=== PATIENT | female | born 2000 | race Caucasian/White ===

== ENCOUNTER 2022-01-05 10:37 | Observation (INO) | payer MEDICAID, SELFPAY ==
[2022-01-05] VITALS (18 sets, daily range): BP systolic 103–129; BP diastolic 60–80; PULSE 95–143; RESP 13–25; TEMP 37.4–38.9; O2SAT 96–100
--- NOTE | ~2022-01-05 | CT_ITS ---
EXAMINATION: CT abdomen pelvis w con DATE: 01/05/2022 13:09 INDICATION: Abdomen pain. TECHNIQUE: Computed tomography (CT) of the abdomen and pelvis was performed with 100 cc Omnipaque 350 intravenous contrast. The dose-length product was 222.43 mGy-cm. Automated exposure control and iter ative reconstruction technique were employed. COMPARISON: None. FINDINGS: The appendix is thickened and enhancing and is retrocecal measuring up to 8 mm greatest tra nsverse dimension. No evidence for perforation. Lung bases are unremarkable. No significant pleural or pericardial effusion. Heart size normal. The l iver, spleen, pancreas, adrenal glands are unremarkable. There are mildly distended enhancing small b owel loops. No definite obstruction. Findings suspicious for enteritis. There is gas and fluid throug hout the colon. No free air or significant free fluid. IMPRESSION: 1. Multiple mildly distended small bowel loops containing fluid with wall enhancement, suspicious for enteritis. 2: Mildly thickened enhancing appendix measuring 8 mm. Consider acute appendicitis in the appropriate clinical setting. No evidence for perforation. Reviewed, dictated and finalized at location A. IMPRESSION: 1. Multiple mildly distended small bowel loops containing fluid with wall enhan cement, suspicious for enteritis. 2: Mildly thickened enhancing appendix measuring 8 mm. Consider acute appendici tis in the appropriate clinical setting. No evidence for perforation.
--- NOTE | ~2022-01-05 | XR_ITS ---
EXAMINATION: XR chest 1V portable 01/05/2022 11:25 INDICATION: Cough for 3-4 weeks PROCEDURE: AP portable chest COMPARISON: No prior studies for comparison. FINDINGS: The lungs are clear. The cardiomediastinal silhouette is within normal limits. There are no pleural effusions. There is no pneumothorax suspected. IMPRESSION: 1: NO ACUTE CARDIOPULMONARY DISEASE. Reviewed, dictated and finalized at location A.
--- NOTE | ~2022-01-05 | XR_ITS ---
XR abdomen obstructive series DATE: 01/05/2022 21:21 INDICATION: Enteritis. Abdominal pain. TECHNIQUE: Portable supine and upright AP views of the abdomen COMPARISON: 01/05/2022 CT abdomen pelvis FINDINGS: There are multiple gas containing small bowel segments overlying the mid abdomen, suggestin g adynamic ileus or enteritis. No bowel obstruction or intraperitoneal free air is evident. The psoas shadows are intact. No visceromegaly is evident. No pleural effusion. No infiltrate or consolidation in the included mid and lower lung zones. Heart s ize is within normal range. IMPRESSION: Mild gaseous distention of the small bowel suggesting enteritis or adynamic ileus Reviewed, dictated and finalized at Location [facility]. Reviewed, dictated and finalized at location A.
--- NOTE | 2022-01-05 11:28 | ED.GENADULT ---
HPI - General Adult General Chief complaint: Nausea/Vomiting/Diarrhea Stated complaint: vomiting black Time Seen by Provider: 01/05/22 11:09 Source: RN notes reviewed History of Present Illness HPI narrative: Patient presents emergency department from home for nausea and vomiting. Patient states that she has had a cough this been nonproductive for the past 2 weeks. She states that starting last night she began to have nausea and vomiting at around 9 PM and has been vomiting since that time. States that nausea vomiting is associated with abdominal pain described as cramping in the upper abdomen. She states that she had one episode of black emesis on her last episode of emesis this morning but none of her other episodes of emesis or black she denies any fevers or chills, chest pain, shortness of breath diarrhea or any other symptoms Related Data Home Medications Medication Instructions Recorded Confirmed norgestimate-ethinyl estradiol tablet 01/05/22 [Sprintec (28)] Allergies Allergy/AdvReac Type Severity Reaction Status Date / Time No Known Allergies Allergy Verified 01/05/22 11:33 Review of Systems Review of Systems: Gen.: Denies fevers or chills ENT: Denies congestion Respiratory: Denies shortness of breath ports CV: Denies chest pain or palpitations GI: See HPI Musculoskeletal: Denies back pain or muscle pain Neuro: Denies numbness, tingling, weakness or focal weakness Skin: Denies rash Except as documented, all other systems reviewed and negative [facility] Past Medical History Medical History (Updated 01/05/22 @ 14:01 by John Gottlieb DO) Patient denies significant medical history Social History Social History (Updated 01/05/22 @ 11:29 by John Gottlieb DO) Smoking status: Never smoker Exam Narrative: APPEARANCE: No acute distress, nontoxic, resting in bed HEENT: Normocephalic, atraumatic, OMM RESPIRATORY: No respiratory distress, clear to auscultation bilaterally with no rhonchi wheezing or rales CARDIOVASCULAR: Tachycardic and regular s murmur ABDOMINAL: Soft nondistended tender palpation epigastric and right upper quadrant left lower quadrant no tenderness in right lower quadrant left lower quadrant Rectal: No hemorrhoids or fissures small amount of light brown stool Hemoccult negative MUSCULOSKELETAl: Moves all extremities. No clubbing, cyanosis or edema. NEURO: Awake and alert. Following commands, speech normal, no focal deficits SKIN:: Warm, dry. Normal Color PSYCHIATRIC: Normal affect/mood Course Course Emergency Course: Evaluate the patient following CT scan does have diffuse abdominal tenderness she is tender in the right lower quadrant Discussed with ROLDAN Castro for Dr. Owen agrees with admission Discussed with Dr. Salazar agrees with consult we discussed antibiotics at this time with questionable appendicitis will hold antibiotics she feels that this is likely more enteritis and he will follow with serial exam Discussed with patient and family results of workup and diagnosis. Discussed need for admission. Patient and family understand and agree to current treatment plan Vital Signs Vital signs: Vital Signs Pulse Rate 140 H 01/05/22 11:13 Respiratory Rate 18 01/05/22 11:13 Blood Pressure 127/75 01/05/22 11:13 Pulse Oximetry 99 01/05/22 11:13 Pulse Rate 140 H 01/05/22 11:13 Respiratory Rate 18 01/05/22 11:13 Blood Pressure 127/75 01/05/22 11:13 Pulse Oximetry 99 01/05/22 11:13 Medical Decision Making Vital Signs Vital Signs: Vital Signs Pulse Rate 140 H 01/05/22 11:13 Respiratory Rate 18 01/05/22 11:13 Blood Pressure 127/75 01/05/22 11:13 Pulse Oximetry 99 01/05/22 11:13 Pulse Rate 140 H 01/05/22 11:13 Respiratory Rate 18 01/05/22 11:13 Blood Pressure 127/75 01/05/22 11:13 Pulse Oximetry 99 01/05/22 11:13 Lab Data Result diagrams: 01/05/22 11:36 01/05/22 11:36 Labs: Lab Re
[2022-01-05] MEDS: ONDANSETRON INJ 4 MG/2 ML VIAL IV PUSH ×2 (11:35→19:43)
[2022-01-05] MEDS: Please add drug allergy info to patient profile. XX (11:35)
[2022-01-05] MEDS: PANTOPRAZOLE SODIUM IV 40 MG VIAL IV PUSH (11:35)
[2022-01-05 11:45] LABS: Basophils Percent Auto 0.2 % (0.2-1.2); Eosinophils Percent Auto 0.4 % (0-4.4); Hematocrit 42.4 % (37.0-47.0); Hemoglobin 13.8 g/dL (12.0-15.0); Immature Granulocyte Absolute 0.03 K/mm3 (0.00-0.031); Immature Granulocyte Percent A 0.3 % (0-0.5); Lymphocytes Absolute Auto 0.55 K/mm3 (0.9-3.2); Lymphocytes Percent Auto 5.9 % (18.3-44.2); Mean Corpuscular HGB Conc 32.5 g/dl (32-36); Mean Corpuscular Hemoglobin 28.3 pg (26-34); Mean Corpuscular Volume 86.9 fl (80-100); Mean Platelet Volume 8.7 fl (7.4-10.4); Monocytes Absolute Auto 0.3 K/mm3 (0.1-0.6); Monocytes Percent Auto 3.7 % (2.6-8.5); Neutrophils Absolute Auto 8.3 K/mm3 (1.3-6.7); Neutrophils Percent Auto 89.5 % (45.5-73.1); Platelet Count Result 329 k/mm3 (150-375); Red Blood Count 4.88 M/mm3 (4.2-5.4); White Blood Count 9.3 K/mm3 (4.5-10.0)
[2022-01-05 11:56] LABS: Alanine Aminotransferase 27 U/L (4-35); Albumin Level 4.8 g/dL (3.7-5.6); Alkaline Phosphatase 69 U/L (45-116); Anion Gap 11 mmol/L (8-16); Aspartate Amino Transferase 35 U/L (14-36); Bilirubin,Total 0.5 mg/dL (0.2-1.3); Blood Urea Nitrogen 16 mg/dL (8-21); Calcium 8.8 mg/dL (8.9-10.7); Carbon Dioxide 25 mmol/L (22-30); Chloride 103 mmol/L (98-107); Estimated CRCL calculation 76 ml/min; Estimated Glomerular Filt Rate > 60; Glucose 126 mg/dL (65-110); Lipase 71 U/L (23-300); Potassium 4.2 mmol/L (3.4-5.0); Sodium 139 mmol/L (134-143)
[2022-01-05 12:00] LABS: INR 1.1; Prothrombin Time 13.5 Seconds (11.1-14.7)
[2022-01-05 12:01] LABS: Partial Thromboplastin Time 24.7 SECONDS (22.3-36.8)
[2022-01-05] MEDS: SODIUM CHLORIDE 0.9% IV 1,000 ML 999 ML IV CONT ×2 (12:26→12:34)
[2022-01-05 12:44] LABS: Add Urine Microscopic? YES; Appearance Urine Cloudy (Clear); Bilirubin Urine Negative (Negative); Blood Urine Negative (Negative); Color Urine Yellow (Yellow); Glucose Urine UA Negative (Negative); Ketones Urine 1+ mg/dL (Negative); Leukocyte Esterase Ur Negative LEU/UL (Negative); Mucus Urine Rare /lpf; Nitrate Urine Negative (Negative); Protein Urine Negative (Negative); RBC Urine 0-2 /hpf (0-2); Specific Grav Ur 1.029 (1.001-1.035); Squamous Epithelial Cell Urine Few /hpf (Few); Urobilinogen Urine Negative mg/dL (<2.0); WBC Urine 0-3 /hpf
--- NOTE | 2022-01-05 14:54 | PC.NURSE ---
Patient care report called to BETH Casarez. All questions answered at this time.
--- NOTE | 2022-01-05 15:20 | ADMGEN ---
This patient, Chasity Patino, was admitted to Medical Room 243-01. Patient/family oriented to hospital policies and general routines including ID bracelet, bed and alarms, visiting hours, pain management, procedures, bathroom and other care routines, personal items, smoking policy, room service/diet, and visiting hours. Information on how to activate the Rapid Response Team has been discussed. Patient/Family are encouraged to report perceived risks to care and to ask questions if they do not understand what they are told or what they should do.
[2022-01-05] MEDS: SODIUM CHLORIDE 0.9% IV 1,000 ML 100 ML IV CONT (15:48)
[2022-01-05] MEDS: ACETAMINOPHEN 325 MG TABLET 650 MG PO (15:50)
--- NOTE | 2022-01-05 17:00 | PM.IMHP ---
H&P: HPI History of Present Illness Date/Time: 01/05/22 17:00 Chief Complaint: Multiple complaints. Narrative: This is a previously healthy 21-year-old female who presented to the emergency department for evaluation of multiple complaints. Several weeks ago she developed a nonproductive cough, sinus congestion, sore throat, and chest congestion, all which have lingered. Last evening, not long after eating a cheeseburger and fries she developed a burning discomfort in the epigastric region and not long thereafter she became extremely nauseated. Overnight she had multiple episodes of emesis, initially of partially digested food and bitter, yellow stomach acid thereafter. She had several loose stools overnight as well. This morning she reports having an episode of emesis that looked like ?black bile? and she felt it would be best to come in for evaluation. On arrival to the ER her temperature was 102? and a CT of the abdomen and pelvis showed mildly distended small bowel loops containing fluid with wall enhancement, suspicious for enteritis as well as mildly thickened enhancing appendix measuring 8 mm and she is being admitted in this setting. Her boyfriend had similar symptoms earlier in the week that he attributed to ?food poisoning? but he has felt better for the last several days. She has not had any other sick contacts. She did not noticed any blood or mucus in her stools. No personal or family history of inflammatory bowel disease. Review of Systems Review of Systems: Twelve systems were reviewed. She reports a mild headache. No neck ache. She denies rash. Endorses diffuse body aches with her fever. She felt a bit lightheaded and dizzy when she was vomiting and having diarrhea but that has since passed. No syncope or near syncope. She denies chest pain and shortness of breath. No melena or hematochezia. She denies dysuria. Except as documented, all other systems were reviewed and are negative. [facility] Past Medical History Medical History (Updated 01/05/22 @ 22:05 by Gloria Braga PA-C) Heart murmur Present since childhood. Unremarkable echocardiogram per patient report. Surgical History Surgical History No pertinent past surgical history Family History Family History (Updated 01/05/22 @ 22:00 by Gloria Braga PA-C) Father Peptic ulcer Social History Social History (Updated 01/05/22 @ 15:19 by Gloria Braga PA-C) Social History: Surrogate decision maker: Nan Patino, mother. Code status: Full code. Smoking status: Never smoker Alcohol intake: never Substance use: never Spiritual care concerns: No Meds Home Medications and Allergies Home Medications Medication Instructions Recorded Confirmed Type norgestimate-ethinyl estradiol 1 tablet PO DAILY 01/05/22 01/05/22 History [Sprintec (28)] Allergies Allergy/AdvReac Type Severity Reaction Status Date / Time No Known Allergies Allergy Verified 01/05/22 15:22 Vital Signs Vital Signs - 24 hr 01/05/22 11:13 01/05/22 11:19 01/05/22 11:46 Pulse Rate 140 H 143 H 115 H Respiratory Rate 18 20 22 H Blood Pressure 127/75 127/75 127/74 Pulse Oximetry 99 99 97 01/05/22 12:01 01/05/22 12:16 01/05/22 12:28 Pulse Rate 102 H 101 H 99 Respiratory Rate 14 14 15 Blood Pressure 123/69 103/75 129/62 Pulse Oximetry 97 97 100 01/05/22 12:31 01/05/22 12:46 01/05/22 13:04 Pulse Rate 95 100 110 H Respiratory Rate 14 16 14 Blood Pressure 124/63 124/71 119/65 Pulse Oximetry 100 100 100 01/05/22 13:16 01/05/22 13:31 01/05/22 13:46 Pulse Rate 113 H 107 H 100 Respiratory Rate 21 H 16 13 Blood Pressure 114/65 122/71 115/80 Pulse Oximetry 100 99 98 01/05/22 14:16 01/05/22 14:34 01/05/22 14:45 Pulse Rate 98 103 H 100 Respiratory Rate 14 25 H 14 Blood Pressure 118/63 123/70 Pulse Oximetry 96 97 97 01/05/22 14:46 Pulse Rate 104 H Respiratory Rate 17 Blood Pr
--- NOTE | 2022-01-05 17:46 | PM.CNGS ---
Assessment and Plan Assessment and plan (1) Enteritis: Onset Date: ~01/05/20 Code(s): K52.9 - Noninfective gastroenteritis and colitis, unspecified Status: Acute Assessment and Plan: At this time her pain is more suprapubic then right lower quadrant and a radiologist was not convinced that she had appendicitis but could not for sure rule it out. Therefore, patient is admitted for observation and serial exams along with follow-up labs. (2) Abdominal pain: Onset Date: ~01/04/22 Code(s): R10.9 - Unspecified abdominal pain Status: Acute Assessment and Plan: CT finding suggests enteritis and the patient seems to have symptoms consistent with gastroenteritis along with small bowel wall thickening in some parts of the small bowel by CT. There was also some thickening of the appendiceal wall without other signs of appendicitis. Therefore, the radiologist could not rule out early appendicitis. Therefore, since the patient had a normal white count we decided to follow her without antibiotics and see how she progresses. Repeat CBC is planned for tomorrow morning and serial exams of the abdomen are planned. Tonight she is not tender in the right lower quadrant but more the suprapubic area. (3) Mild dehydration: Code(s): E86.0 - Dehydration Status: Acute Assessment and Plan: IVF rehydration. (4) Nausea & vomiting: Code(s): R11.2 - Nausea with vomiting, unspecified Status: Acute Assessment and Plan: This is now significantly slowed. Will llet pt try clear liquids until MN and then MPO until another exam/evaluation in the AM. History of Present Illness Consult details Consult date: 01/05/22 Reason for consult: abdominal pain Narrative: this patient is a pleasant 21-year-old white female admitted through the emergency room today after a CT showed signs of enteritis and possible early appendicitis with thickening of the appendix and no appendicoliths. She is being observed while not on antibiotics to see how she progresses. She was not running fever in the emergency room and her white count was normal. At this time her pain is more suprapubic then right lower quadrant and a radiologist was not convinced that she had appendicitis but could not for sure rule it out. Therefore, patient is admitted for observation and serial exams along with follow-up labs. Review of Systems Review of Systems: All systems reviewed & are unremarkable except as noted in HPI and below (HPI) Constitutional: Constitutional: Reports as per HPI, Reports fever(s) (this PM on the floor, but doesn't remember one at home.) and Reports malaise Eyes: Eyes: Reports no additional eye complaints ENT: Reports Normal hearing present and Denies dizziness Cardiovascular: Cardiovascular: Reports no additional cardiovascular complaints, Denies chest pain and Denies irregular heart rhythm Respiratory: Respiratory: Reports no additional respiratory complaints Gastrointestinal: Gastrointestinal: Reports no additional gastrointestinal complaints, Denies abdominal pain, Denies bloating, Reports GI cramping (lower abdomen), Reports diarrhea, Reports nausea and Reports vomiting (none since arriving at the hospital.) Genitourinary: Genitourinary: Denies hematuria Musculoskeletal: Musculoskeletal: Denies back pain Integumentary/Breasts: Skin/Breast: Reports system reviewed and no additional complaints, except as docu Neurologic: Reports Normal hearing present, Denies Abnormal speech present, Denies confusion and Denies dizziness Psychiatric: Psychiatric: Reports no additional psychiatric complaints and Denies confusion Endocrine: Endocrine: Reports no additional endocrine complaints Hematologic/Lymphatic: Hematologic/Lymphatic: Denies easy bleeding and Denies easy bruising Allergic/Immunologic: Allergic/Immunologic: Reports no additional allergic/immunologic complaints PMFSH Past Medical Hist
[2022-01-05 18:33] LABS: Lactic Acid Reflex 1.1 mmol/L (0.7-2.1)
[2022-01-05 18:36] LABS: CRP 2.8 mg/dL (<1.0)
[2022-01-05 19:14] LABS: Influenza Control Positive
[2022-01-05 19:21] LABS: SARS-CoV-2 RNA PCR Negative
[2022-01-05] MEDS: FAMOTIDINE 20 MG/2 ML VIAL IV PUSH (19:43)
[2022-01-05] MEDS: HYDROcodone/acetaminophen (*CRX) 5-325 MG TABLET 1 TAB PO (19:50)
[2022-01-06] VITALS (8 sets, daily range): BP systolic 110–127; BP diastolic 51–71; PULSE 73–100; RESP 14–18; TEMP 36.7–37.8; O2SAT 81–100
[2022-01-06] MEDS: SODIUM CHLORIDE 0.9% IV 1,000 ML 100 ML IV CONT (00:15)
[2022-01-06] MEDS: PENICILLIN G BENZATHINE 1,200,000 UNITS/2 ML SYRINGE 1200000 UNITS IM (00:16)
[2022-01-06] MEDS: ACETAMINOPHEN 325 MG TABLET 650 MG PO ×2 (01:21→20:11)
[2022-01-06 05:10] LABS: Basophils Percent Auto 0.5 % (0.2-1.2); Eosinophils Absolute Auto 0.1 K/mm3 (0-0.3); Eosinophils Percent Auto 1.2 % (0-4.4); Hematocrit 33.4 % (37.0-47.0); Hemoglobin 10.7 g/dL (12.0-15.0); Immature Granulocyte Absolute 0.03 K/mm3 (0.00-0.031); Immature Granulocyte Percent A 0.7 % (0-0.5); Lymphocytes Absolute Auto 1.46 K/mm3 (0.9-3.2); Lymphocytes Percent Auto 34.3 % (18.3-44.2); Mean Corpuscular Hemoglobin 28.3 pg (26-34); Mean Corpuscular Volume 88.4 fl (80-100); Mean Platelet Volume 8.8 fl (7.4-10.4); Monocytes Absolute Auto 0.4 K/mm3 (0.1-0.6); Monocytes Percent Auto 9.2 % (2.6-8.5); Neutrophils Absolute Auto 2.3 K/mm3 (1.3-6.7); Neutrophils Percent Auto 54.1 % (45.5-73.1); Platelet Count Result 226 k/mm3 (150-375); Red Blood Count 3.78 M/mm3 (4.2-5.4); Red Cell Distribution Width 13.2 % (11.5-14.5); White Blood Count 4.3 K/mm3 (4.5-10.0)
[2022-01-06 05:32] LABS: Alanine Aminotransferase 17 U/L (4-35); Albumin Level 2.9 g/dL (3.7-5.6); Alkaline Phosphatase 42 U/L (45-116); Anion Gap 5 mmol/L (8-16); Aspartate Amino Transferase 26 U/L (14-36); Bilirubin,Total 0.3 mg/dL (0.2-1.3); Blood Urea Nitrogen 7 mg/dL (8-21); Calcium 6.9 mg/dL (8.9-10.7); Carbon Dioxide 23 mmol/L (22-30); Chloride 107 mmol/L (98-107); Estimated CRCL calculation 86 ml/min; Estimated Glomerular Filt Rate > 60; Glucose 75 mg/dL (65-110); Magnesium 1.5 mg/dL (1.6-2.3); Potassium 3.2 mmol/L (3.4-5.0); Sodium 135 mmol/L (134-143)
[2022-01-06] MEDS: ONDANSETRON INJ 4 MG/2 ML VIAL IV PUSH (07:40)
[2022-01-06 07:44] LABS: IFOB Positive Control Positive; Immunochemical Fecal Occult Bl Negative (N)
[2022-01-06 07:51] LABS: Basophils Percent Auto 0.5 % (0.2-1.2); Eosinophils Absolute Auto 0.1 K/mm3 (0-0.3); Eosinophils Percent Auto 1.9 % (0-4.4); Immature Granulocyte Absolute 0.06 K/mm3 (0.00-0.031); Immature Granulocyte Percent A 1.4 % (0-0.5); Lymphocytes Absolute Auto 1.41 K/mm3 (0.9-3.2); Lymphocytes Percent Auto 33.8 % (18.3-44.2); Mean Corpuscular HGB Conc 31.4 g/dl (32-36); Mean Corpuscular Hemoglobin 27.9 pg (26-34); Mean Corpuscular Volume 88.8 fl (80-100); Mean Platelet Volume 8.8 fl (7.4-10.4); Monocytes Absolute Auto 0.4 K/mm3 (0.1-0.6); Monocytes Percent Auto 9.4 % (2.6-8.5); Neutrophils Absolute Auto 2.2 K/mm3 (1.3-6.7); Platelet Count Result 224 k/mm3 (150-375); Red Blood Count 3.94 M/mm3 (4.2-5.4); Red Cell Distribution Width 13.1 % (11.5-14.5); White Blood Count 4.2 K/mm3 (4.5-10.0)
[2022-01-06 07:53] LABS: Alanine Aminotransferase 18 U/L (4-35); Albumin Level 3.2 g/dL (3.7-5.6); Alkaline Phosphatase 45 U/L (45-116); Anion Gap 6 mmol/L (8-16); Aspartate Amino Transferase 26 U/L (14-36); Bilirubin,Total 0.5 mg/dL (0.2-1.3); Blood Urea Nitrogen 8 mg/dL (8-21); Calcium 6.9 mg/dL (8.9-10.7); Carbon Dioxide 22 mmol/L (22-30); Chloride 108 mmol/L (98-107); Estimated CRCL calculation 99 ml/min; Estimated Glomerular Filt Rate > 60; Glucose 74 mg/dL (65-110); Magnesium 1.6 mg/dL (1.6-2.3); Potassium 3.1 mmol/L (3.4-5.0); Sodium 136 mmol/L (134-143)
[2022-01-06] MEDS: FAMOTIDINE 20 MG/2 ML VIAL IV PUSH ×2 (08:15→20:11)
--- NOTE | 2022-01-06 11:33 | PM.IMPN ---
Progress Note: A&P Assessment and Plan (1) Abdominal pain: Onset Date: ~01/04/22 Code(s): R10.9 - Unspecified abdominal pain Status: Acute Assessment and Plan: Possibly related to enteritis or menstrual cycle (2) Enteritis: Onset Date: ~01/05/20 Code(s): K52.9 - Noninfective gastroenteritis and colitis, unspecified Status: Acute Assessment and Plan: Monitor vital signs, I and O's, check stool output, neuro status and patient is a fall risk Monitor serum electrolytes and CBC Monitor lactic acid Gentle IV fluid resuscitation Initiate IV Zofran p.r.n. q.4 hours Consult general surgery for further evaluation, appreciate assistance and recommendation Diet:NPO (3) Mild dehydration: Code(s): E86.0 - Dehydration Status: Acute Assessment and Plan: Administer gentle IV fluids (4) Pharyngitis due to group A beta hemolytic Streptococci: Code(s): J02.0 - Streptococcal pharyngitis Status: Acute Assessment and Plan: rapid strep screen did come back positive and she will be given a 1 time dose of IM benzathine penicillin Subjective Date/time seen: 01/06/22 11:33 Patient was evaluated this morning with the mother at the bedside. Patient reported that it is okay for me to discuss her care from her mother. Patient reports that she has had nausea and vomiting at home prior to coming to the hospital. Patient is also had liquid stools, patient denies melena or hematochezia. Patient reports that her emesis appears black although not coffee-ground. She related it to the cheeseburger she ate earlier that evening. Patient also reports that she is menstruating as having abdominal cramping related to that. She reports there is no other acute abdominal pain. Patient had a CT performed in the emergency department which revealed possible enteritis. General surgery consulted, pending recommendations. Review of Systems Review of Systems: All systems reviewed & are unremarkable except as noted in HPI and below Exam Narrative: General: Healthy appearing female sitting up in bed. Weight: 56 kg. BMI: 22.9. HEENT: Wearing glasses. PERRL, EOMI. Sclerae anicteric. Tacky mucous membranes. Oropharynx is erythematous without obvious exudate. Neck: Supple. No significant lymphadenopathy. Respiratory: Lungs are clear to auscultation bilaterally. Cardiovascular: Regular rate and rhythm with S1-S2. Soft murmur at the left upper sternal border. Gastrointestinal: Abdomen is soft and nondistended with positive bowel sounds. She has mild diffuse tenderness to palpation throughout the abdomen. No guarding or rebound tenderness. Skin: Warm and dry. Generalized pallor. No rash or lesion. Extremities: No cyanosis, clubbing, or edema. Radial and pedal pulses intact. Neurological: Alert. Cranial nerves 2-12 are grossly intact. No gross focal deficits to casual conversation. Psychiatric: Pleasant and cooperative with normal mood and affect. Objective Data Vital Signs Vital Signs: Vital Signs - 24 hr 01/05/22 11:46 01/05/22 12:01 01/05/22 12:16 Temperature Pulse Rate 115 H 102 H 101 H Respiratory Rate 22 H 14 14 Blood Pressure 127/74 123/69 103/75 Pulse Oximetry 97 97 97 01/05/22 12:28 01/05/22 12:31 01/05/22 12:46 Temperature Pulse Rate 99 95 100 Respiratory Rate 15 14 16 Blood Pressure 129/62 124/63 124/71 Pulse Oximetry 100 100 100 01/05/22 13:04 01/05/22 13:16 01/05/22 13:31 Temperature Pulse Rate 110 H 113 H 107 H Respiratory Rate 14 21 H 16 Blood Pressure 119/65 114/65 122/71 Pulse Oximetry 100 100 99 01/05/22 13:46 01/05/22 14:16 01/05/22 14:34 Temperature Pulse Rate 100 98 103 H Respiratory Rate 13 14 25 H Blood Pressure 115/80 118/63 123/70 Pulse Oximetry 98 96 97 01/05/22 14:45 01/05/22 14:46 01/05/22 16:45 Temperature 102.0 F H Pulse Rate 100 104 H 104 H Respiratory Rate 14 17 Blood Pressure 115/69 114/65 Pulse
[2022-01-06] MEDS: SODIUM CHLORIDE 0.9% IV 1,000 ML 50 ML IV CONT (12:54)
--- NOTE | 2022-01-06 14:03 | PM.PNGS ---
Progress Note: A&P Assessment and Plan (1) Pharyngitis due to group A beta hemolytic Streptococci: Onset Date: 01/05/22 Code(s): J02.0 - Streptococcal pharyngitis Status: Acute Assessment and Plan: discovered yesterday. Will leave up to the hospitalist to recommend further and complete antibiotic therapy. (2) Abdominal pain: Onset Date: ~01/04/22 Code(s): R10.9 - Unspecified abdominal pain Status: Acute Assessment and Plan: Most likely secondary to the strep. (3) Enteritis: Onset Date: ~01/05/20 Code(s): K52.9 - Noninfective gastroenteritis and colitis, unspecified Status: Acute Assessment and Plan: Probably related to her strap infection. This should gradually resolve with treatment of the strep. Additional Plan Start on clear liquids now and will let the hospitalist advance as tolerated and as they see fit. Will sign off. Please call if we can be of further assistance. Time Spent With Patient Time with patient: less than 15 minutes Subjective Subjective Date/Time Seen: 01/06/22 14:03 Patient lying in bed with head up slightly when I entered the room. States she is having some abdominal cramping consistent with starting her period. Other abdominal pain is essentially dissipated. Still occasional mild nausea but willing to start liquids. Has had a bowel movement. Review of Systems Review of Systems: All systems reviewed & are unremarkable except as noted in HPI and below Constitutional: Constitutional: Reports as per HPI, Denies chills and Denies fever(s) Cardiovascular: Cardiovascular: Denies chest pain and Denies dyspnea Respiratory: Respiratory: Reports no additional respiratory complaints and Denies dyspnea Comments: still occasional cough. Gastrointestinal: Gastrointestinal: Reports as per HPI, Denies bloating, Reports nausea ( Mild), Denies vomiting and Reports other ( menstrual cramps) Musculoskeletal: Musculoskeletal: Reports no additional musculoskeletal complaints Neurologic: Denies memory loss Psychiatric: Psychiatric: Denies anxiety and Denies memory loss Exam Const: General: cooperative, comfortable, alert and awake Orientation/consciousness: patient oriented x3 HENMT: Head: normal to inspection Mouth: Yes moist mucous membranes Eyes: Sclera: sclerae normal Pupils: Equal, round and reactive pupils present Neck: Neck: normal visual inspection and no JVD Chest: Chest palpation & inspection: normal inspection of the chest Resp: Effort & Inspection: normal respiratory effort Auscultation: clear to auscultation bilaterally Cardio: Jugular venous distension: no JVD Rate: regular rate GI: Auscultation: normal bowel sounds Neuro: General: patient oriented x3 Cranial nerves: Yes Equal, round and reactive pupils present Objective Data Vital Signs Vital Signs: Vital Signs - 24 hr 01/05/22 14:16 01/05/22 14:34 01/05/22 14:45 Temperature Pulse Rate 98 103 H 100 Respiratory Rate 14 25 H 14 Blood Pressure 118/63 123/70 Pulse Oximetry 96 97 97 01/05/22 14:46 01/05/22 16:45 01/05/22 19:51 Temperature 38.9 C H 37.4 C Pulse Rate 104 H 104 H 112 H Respiratory Rate 17 20 Blood Pressure 115/69 114/65 119/60 Pulse Oximetry 98 100 97 01/06/22 00:00 01/06/22 01:21 01/06/22 03:02 Temperature 37.8 C H 37.7 C H 37.1 C Pulse Rate 100 Respiratory Rate 18 Blood Pressure 110/56 L Pulse Oximetry 100 01/06/22 05:11 Temperature 36.8 C Pulse Rate 80 Respiratory Rate 14 Blood Pressure 115/51 L Pulse Oximetry 97 Intake/Output Intake/Output: Intake & Output 01/03/22 01/04/22 01/05/22 01/06/22 23:59 23:59 23:59 23:59 Intake Total 2100 2250 Output Total 500 Balance 2100 1750 Meds/Results Medications: Active Medications Generic Name Dose Route Start Last Admin Trade Name Freq PRN Reason Stop Dose Admin Acetaminophen 650 mg 01/05/22 15:21 01/06/22 01:21
[2022-01-07 05:21] LABS: Basophils Percent Auto 0.5 % (0.2-1.2); Eosinophils Absolute Auto 0.2 K/mm3 (0-0.3); Eosinophils Percent Auto 4.4 % (0-4.4); Hematocrit 31.6 % (37.0-47.0); Hemoglobin 10.4 g/dL (12.0-15.0); Immature Granulocyte Absolute 0.03 K/mm3 (0.00-0.031); Immature Granulocyte Percent A 0.5 % (0-0.5); Lymphocytes Absolute Auto 1.54 K/mm3 (0.9-3.2); Lymphocytes Percent Auto 28.2 % (18.3-44.2); Mean Corpuscular HGB Conc 32.9 g/dl (32-36); Mean Corpuscular Hemoglobin 28.1 pg (26-34); Mean Corpuscular Volume 85.4 fl (80-100); Mean Platelet Volume 8.8 fl (7.4-10.4); Monocytes Absolute Auto 0.6 K/mm3 (0.1-0.6); Monocytes Percent Auto 11.2 % (2.6-8.5); Neutrophils Percent Auto 55.2 % (45.5-73.1); Platelet Count Result 219 k/mm3 (150-375); Red Cell Distribution Width 13.2 % (11.5-14.5); White Blood Count 5.5 K/mm3 (4.5-10.0)
[2022-01-07 05:23] VITALS: BP 111/66; PULSE 66; RESP 14; TEMP 36.5; O2SAT 99
[2022-01-07 05:30] LABS: Alanine Aminotransferase 17 U/L (4-35); Albumin Level 3.2 g/dL (3.7-5.6); Alkaline Phosphatase 44 U/L (45-116); Anion Gap 6 mmol/L (8-16); Aspartate Amino Transferase 26 U/L (14-36); Bilirubin,Total 0.2 mg/dL (0.2-1.3); Blood Urea Nitrogen 4 mg/dL (8-21); Calcium 7.8 mg/dL (8.9-10.7); Carbon Dioxide 24 mmol/L (22-30); Chloride 107 mmol/L (98-107); Estimated CRCL calculation 99 ml/min; Estimated Glomerular Filt Rate > 60; Glucose 88 mg/dL (65-110); Magnesium 1.8 mg/dL (1.6-2.3); Potassium 3.2 mmol/L (3.4-5.0); Sodium 137 mmol/L (134-143)
--- NOTE | 2022-01-07 07:09 | PM.IMPN ---
Progress Note: A&P Assessment and Plan (1) Enteritis: Onset Date: ~01/05/20 Code(s): K52.9 - Noninfective gastroenteritis and colitis, unspecified Status: Acute Assessment and Plan: Abd CT: Multiple mildly distended small bowel loops containing fluid with wall enhancement, suspicious for enteritis. Mildly thickened enhancing appendix measuring 8 mm. Consider acute appendicitis in the appropriate clinical setting. No evidence for perforation. Abd xray: Mild gaseous distention of the small bowel suggesting enteritis or adynamic ileus Lactic acid 1.1 Gentle IV fluid resuscitation NS at 50ml/hr Initiate IV Zofran p.r.n. q.4 hours Consult general surgery for further evaluation, appreciate assistance and recommendation Diet advance as tolerated (2) Mild dehydration: Code(s): E86.0 - Dehydration Status: Acute Assessment and Plan: Administer gentle IV fluids (3) Pharyngitis due to group A beta hemolytic Streptococci: Onset Date: 01/05/22 Code(s): J02.0 - Streptococcal pharyngitis Status: Acute Assessment and Plan: Reports on going laryngitis rapid strep screen did come back positive 1 time dose of IM benzathine penicillin WBC normal Trend symptoms Time Spent With Patient Time with patient: Greater than 35 minutes Subjective Date/time seen: 01/07/22 07:09 Interval history: Date/Time: 01/05/22 17:00 Narrative: This is a previously healthy 21-year-old female who presented to the emergency department for evaluation of multiple complaints. Several weeks ago she developed a nonproductive cough, sinus congestion, sore throat, and chest congestion, all which have lingered. Last evening, not long after eating a cheeseburger and fries she developed a burning discomfort in the epigastric region and not long thereafter she became extremely nauseated. Overnight she had multiple episodes of emesis, initially of partially digested food and bitter, yellow stomach acid thereafter. She had several loose stools overnight as well. This morning she reports having an episode of emesis that looked like ?black bile? and she felt it would be best to come in for evaluation. On arrival to the ER her temperature was 102? and a CT of the abdomen and pelvis showed mildly distended small bowel loops containing fluid with wall enhancement, suspicious for enteritis as well as mildly thickened enhancing appendix measuring 8 mm and she is being admitted in this setting. Her boyfriend had similar symptoms earlier in the week that he attributed to ?food poisoning? but he has felt better for the last several days. She has not had any other sick contacts. She did not noticed any blood or mucus in her stools. No personal or family history of inflammatory bowel disease. Date/Time: 01/05/22 17:00 Narrative: This is a previously healthy 21-year-old female who presented to the emergency department for evaluation of multiple complaints. Several weeks ago she developed a nonproductive cough, sinus congestion, sore throat, and chest congestion, all which have lingered. Last evening, not long after eating a cheeseburger and fries she developed a burning discomfort in the epigastric region and not long thereafter she became extremely nauseated. Overnight she had multiple episodes of emesis, initially of partially digested food and bitter, yellow stomach acid thereafter. She had several loose stools overnight as well. This morning she reports having an episode of emesis that looked like ?black bile? and she felt it would be best to come in for evaluation. On arrival to the ER her temperature was 102? and a CT of the abdomen and pelvis showed mildly distended small bowel loops containing fluid with wall enhancement, suspicious for enteritis as well as mildly thickened enhancing appendix measuring 8 mm and she is being admitted in this setting. Her boyfriend had similar symptoms earlier in the week that
[2022-01-07] MEDS: SODIUM CHLORIDE 0.9% IV 1,000 ML 50 ML IV CONT (08:03)
[2022-01-07] MEDS: MAGNESIUM SULF 2 GM/WATER 50ML 2 GM/50 ML BAG IVPB (08:03)
[2022-01-07] MEDS: FAMOTIDINE 20 MG/2 ML VIAL IV PUSH (08:03)
[2022-01-07 09:02] VITALS: O2SAT 97
--- NOTE | 2022-01-07 09:15 | PM.DS ---
DS: Admitting Diagnosis Discharge Date 01/07/22 0915 Admitting Diagnosis Strep laryngitis DS: Discharge Diagnosis Discharge Diagnosis (1) Enteritis: Onset Date: ~01/05/20 Code(s): K52.9 - Noninfective gastroenteritis and colitis, unspecified Status: Acute Assessment and Plan: Abd CT: Multiple mildly distended small bowel loops containing fluid with wall enhancement, suspicious for enteritis. Mildly thickened enhancing appendix measuring 8 mm. Consider acute appendicitis in the appropriate clinical setting. No evidence for perforation. Abd xray: Mild gaseous distention of the small bowel suggesting enteritis or adynamic ileus Lactic acid 1.1 Gentle IV fluid resuscitation NS at 50ml/hr Initiate IV Zofran p.r.n. q.4 hours Consult general surgery for further evaluation, appreciate assistance and recommendation Diet advance as tolerated (2) Mild dehydration: Code(s): E86.0 - Dehydration Status: Acute Assessment and Plan: Administer gentle IV fluids (3) Pharyngitis due to group A beta hemolytic Streptococci: Onset Date: 01/05/22 Code(s): J02.0 - Streptococcal pharyngitis Status: Acute Assessment and Plan: Reports on going laryngitis rapid strep screen did come back positive 1 time dose of IM benzathine penicillin WBC normal Trend symptoms DS: Summary Hospital Course Hospital Course: Patient is a 21-year-old female with no known medical history who presented to the ED with complaints nausea and vomiting along with flu-like symptoms. Abdominal CT was performed and showed that the patient did have some enteritis. Patient was also swabbed positive for group a Streptococcus. Patient was given 1 time IM dose penicillin. Patient was also made NPO however was able to tolerate clear liquids. Patient has been able to tolerate solid foods at this time. She still does have some congestion and cough however she states that is getting better. She is also still having some abdominal pain however she is on her menstrual cycle and is relating some of the pain to cramping. Lactic acid was 1.1 upon arrival. IV fluids were given and IV Zofran was also available. Patient has been doing well. Labs and vital signs are all within a normal range. Patient is stated that she is ready to go home and ready to eat a full diet. Patient denies any chest pain, shortness of breath, nausea, vomiting, diarrhea, constipation, weakness or fatigue. Status at Discharge Functional status at discharge: independent ambulation Overall status at discharge: patient is progressing back to baseline Time Spent with Patient Time attestation: Total time spent providing and/or coordinating discharge services: 42 minutes Time spent: Greater than 30 minutes Specific discharge activities: Diagnostic testing, chart review, developing a treatment plan, education, care coordination documentation, physical exam, result review Exam Const: General: cooperative, healthy appearing, no acute distress, well developed, alert and awake Nutritional Appearance: well nourished Orientation/consciousness: patient oriented x3 Limitations: no limitations HENMT: Head: normal to inspection Ears: hearing grossly normal bilaterally General nose exam: Normal external nose present Mouth: Yes Normal oral and palatal mucosa present, Yes lip normal and Yes tongue normal Teeth and gingiva: abnormal tooth and associated gingiva and poor dentition Eyes: General: appearance normal, both eyes and all related structures Neck: Neck: normal visual inspection, full ROM, trachea midline and supple Chest: Chest palpation & inspection: normal inspection of the chest Resp: Effort & Inspection: normal respiratory effort and able to speak in complete sentences Auscultation: clear to auscultation bilaterally Cardio: Jugular venous distension: no JVD Rate: regular rate Rhythm: regular rhythm Heart sounds: S1
== END 2022-01-07 12:13 | disposition home or self-care (01) ==
LOC: ANHED 14:01 → ANH2MED 01-07 10:11
PROVIDERS: Nurse Practitioner Family; Physician Assistant; Admitting Provider Family Medicine; Emergency Provider Emergency Medicine; Visit Provider Nurse Practitioner
DX: K52.9 Noninfective gastroenteritis and colitis, unspecified (principal); E86.0 Dehydration; J02.0 Streptococcal pharyngitis; B95.0 Streptococcus, group A, as the cause of diseases classified elsewhere
CPT/HCPCS: 36415; 71045; 74019; 74177; 80053; 81001; 81025; 82274; 83605; 83690; 83735; 85025; 85610; 85730; 86140; 86850; 86900; 86901; 87040; 87045; 87269; 87272; 87427; 87804; 87880; 96361; 96372; 96374; 96375; 96376; 99285; A9270; C9113; C9803; G0378; G0379; J0131; J0561; J2405; J3475; J7030; Q9967; U0003; U0005